=== PATIENT | male | born 1975 | race Caucasian/White ===

== ENCOUNTER 2018-10-16 18:01 | Emergency (ER) | payer BC ==
--- NOTE | 2018-10-16 18:12 | ERPHSYRPT ---
- History of Present Illness Time Seen by Provider: 10/16/18 18:12 Source: patient Exam Limitations: no limitations Physician History: 43 y/o morbidly obese white male presents with left leg upper inner thigh pain and swelling. began this am. no tx provided. sx not going away. pt did injure his leg 2 weeks ago but xrays negative for fx or other acute process. pt denies cp and soa. Method of Injury: other (none today) Occurred: this morning Quality: aching Severity of Pain-Max: mild Severity of Pain-Current: mild Lower Extremities Pain: thigh: left (upper inner) Modifying Factors: Improves With: movement Associated Symptoms: none Allergies/Adverse Reactions: Penicillins Allergy (Verified 10/16/18 18:23) Home Medications: Atorvastatin Calcium [Lipitor] 10 mg PO DAILY 10/16/18 [History] Bupropion HCl 150 mg Sr [Wellbutrin SR 150 MG] 150 mg PO BID 10/16/18 [ History] Meloxicam 7.5 mg [Mobic 7.5 MG] 7.5 mg PO DAILY 10/16/18 [History] Metformin HCl 500 mg [Glucophage 500 MG] 500 mg PO BIDWM 10/16/18 [History ] Metoprolol Succinate 100 mg [Toprol Xl 100 MG] 100 mg PO DAILY 10/16/18 [ History] Naproxen 500 mg [Naprosyn 500 MG] 500 mg PO BID 10/16/18 [History] Sertraline HCl 50 mg [Zoloft 50 mg Tablet] 50 mg PO DAILY 10/16/18 [History] dilTIAZem HCl [Diltiazem ER] 240 mg PO DAILY 10/16/18 [History] - Review of Systems Constitutional: No Symptoms Eyes: No Symptoms Ears, Nose, & Throat: No Symptoms Respiratory: No Symptoms, No Cough, No Dyspnea Cardiac: No Symptoms, No Chest Pain Abdominal/Gastrointestinal: No Symptoms Genitourinary Symptoms: No Symptoms Musculoskeletal: Other (localized tenderness upper inner thigh on left) Skin: No Symptoms Neurological: No Symptoms Psychological: No Symptoms Endocrine: No Symptoms Hematologic/Lymphatic: No Symptoms Immunological/Allergic: No Symptoms All Other Systems: Reviewed and Negative - Past Medical History Neurological History: No Pertinent History ENT History: No Pertinent History Cardiac History: No Pertinent History Respiratory History: No Pertinent History Endocrine Medical History: No Pertinent History Musculoskeletal History: No Pertinent History GI Medical History: No Pertinent History History: No Pertinent History Male Reproductive Disorders: No Pertinent History - Past Surgical History Past Surgical History: Yes (reviewed rn notes) Significant Family History: no pertinent family hx - Nursing Vital Signs Nursing Vital Signs: Initial Vital Signs Temperature 98.5 F 10/16/18 18:09 Pulse Rate 67 10/16/18 18:09 Respiratory Rate 20 10/16/18 18:09 Blood Pressure 163/85 10/16/18 18:09 O2 Sat by Pulse Oximetry 100 10/16/18 18:09 Pain Scale Pain Intensity 8 - Physical Exam General Appearance: no apparent distress, alert, anxiety Eyes, Ears, Nose, Throat Exam: normal ENT inspection, moist mucous membranes Neck Exam: normal inspection, non-tender, supple, full range of motion Cardiovascular/Respiratory Exam: chest non-tender, normal breath sounds, regular rate/rhythm, heart sounds normal Gastrointestinal/Abdominal Exam: non-tender, soft Back Exam: normal inspection, normal range of motion, No CVA tenderness, No vertebral tenderness Hips Exam: bilateral: non-tender, normal inspection, normal range of motion, no evidence of injury Legs Exam: right leg: non-tender, left leg: soft tissue tenderness, bilateral leg: normal range of motion, no evidence of injury, other (bilateral multiple varicose vv) Knees Exam: bilateral knee: non-tender, normal inspection, normal range of motion, no evidence of injury Ankle Exam: bilateral ankle: non-tender, normal inspection, normal range of motion, no evidence of injury Neuro/Tendon Exam: normal sensation, normal motor functions Mental Status Exam: alert, oriented x 3, cooperative Skin Exam: normal color, warm, dry SpO2 Interpretation: normal O2 Delivery: Room Air - Course Nursing assessment & vital signs reviewed: Yes Ordered Tests: Active Orders 24 hr Category Date Time Status IV Insertion STAT Care 10/16/18 21:06 Ordered VENOUS UNILAT/LIMITED EXTREMIT [US] Stat Exams 10/16/18 19:34 Ordered CBC W DIFF Stat Lab 10/16/18 21:06 Ordered CMP Stat Lab 10/16/18 21:06 Ordered D-DIMER QUANTITATION Stat Lab 10/16/18 19:09 Completed PROTIME WITH INR Stat Lab 10/16/18 21:06 Ordered Lab/Rad Data: Laboratory Results 10/16/18 Range/Units 19:09 D-Dimer 3474 H* (215-500) ng/mL - Progress Progress: pain not gone completely, re-examined Progress Note: 10/16/18 21:[address] toribio. i reviewed pt hx and venous doppler of left leg. positive for dvt left femoral vein to popliteal vein. pt denies soa and denies cp. dr. toribio recommends lovenox subq now then start Eliquis 5mg po bid in the morning for one week. pt is to call dr. Toribio' office Thursday10/18/18 - Departure Time of Disposition: 21:19 Departure Disposition: Home Clinical Impression: Deep vein thrombosis (DVT) of left lower extremity Condition: Stable Critical Care Time: No Referrals: FELICIANO ZAVALETA [Primary Care Provider] - Additional Instructions: fill your Eliquis prescription tomorrow morning. take as prescribed. call Dr. Toribio' office in the morning of 10/18/18 to arrange follow up appointment. stop your naproxen and meloxicam. Prescriptions: Apixaban [Eliquis] 5 mg PO BID #14 tablet
[2018-10-16] MEDS ORDERED: ENOXAPARIN SODIUM SQ ONE ×3 (21:26→21:30)
[2018-10-16] MEDS ORDERED: ENOXAPARIN SODIUM SQ STA (21:27)
[2018-10-16 21:43] LABS: BASOPHIL % 0.8 % (0.0-0.4); Basophil (Absolute #) 0.08 (0-0.4); Eosinophil % 2.9 % (0.00-5.0); Granulocyte Absolute (ANC) 6.57 (1.4-6.9); Granulocytes % 62.4 % (36.0-66.0); Hematocrit 37.7 % (42-50); Hemoglobin 12.4 gm/dl (12.5-18.0); Lymphocyte (Absolute #) 2.82 (1.0-4.6); Lymphocytes % 26.9 % (24.0-44.0); Mean Cell Volume 84.3 fl (78-100); Mean Corpuscular Hemoglobin 27.7 pg (26-32); Mean Corpuscular Hgb Concent. 32.9 g/dl (32-36); Mean Platelet Volume 9.4 fl (6-9.5); Monocyte (Absolute #) 0.73 (0.0-1.3); Platelet Count 212 K/mm3 (150-450); Red Blood Count 4.47 M/mm3 (4.1-5.6); Red Cell Distribution Width 14.4 % (11.5-14.0); White Blood Count 10.5 K/mm3 (4.0-10.5)
[2018-10-16 21:51] LABS: INR 1.1 (0.8-3.0); PROTIME 12.8 SECONDS (8.83-12.87)
[2018-10-16 21:53] LABS: ALBUMIN 3.9 g/dL (3.5-5.0); ALKALINE PHOSPHATASE 90 U/L (38-126); ANION GAP 10.6 MEQ/L (5-15); BLOOD UREA NITROGEN 18 mg/dL (9-20); CHLORIDE 102 mmol/L (98-107); Calcium 8.9 mg/dL (8.4-10.2); Carbon Dioxide 30 mmol/L (22-30); Creatinine 1 0.87 mg/dL (0.66-1.25); Glucose 100 mg/dL (74-106); Potassium 4.6 mmol/L (3.5-5.1); SGOT/AST 21 U/L (17-59); SGPT/ALT 24 U/L (0-50); SODIUM 138 mmol/L (137-145); Total Protein 7.1 g/dL (6.3-8.2)
[2018-10-16 21:57] VITALS: BP 156/98; PULSE 79; O2SAT 98
--- NOTE | 2018-10-17 09:05 | XRAY ---
Indication: Left leg pain. Status post fall 3 weeks ago. Varicose veins. 2-dimensional sonogram and color Doppler imaging of the major venous vessels of the left leg was performed. Comparison: April 21, 2017. There is now occluding thrombus in the popliteal and distal femoral veins and also nonoccluding thrombus in the posterior tibial vein. No thrombus in the remaining common femoral, mid to proximal femoral, and greater saphenous veins with normal compressibility. Impression: New left leg DVT as detailed. Comment: Preliminary report was given.
== END 2018-10-16 22:03 | disposition home or self-care (01) ==
LOC: ED 18:01
DX: I82.412 Acute embolism and thrombosis of left femoral vein (principal); M79.662 Pain in left lower leg; Z79.899 Other long term (current) drug therapy
CPT/HCPCS: 36415; 80053; 85025; 85379; 85610; 93971; 96372; 99284; J1650